=== PATIENT | female | born 1950 | race Caucasian/White ===

== ENCOUNTER → 2018-01-06 10:07 | Outpatient (CLI) | payer OTHER, SELFPAY ==
--- NOTE | 2018-01-06 10:12 | RAD_ITS ---
STUDY: X-RAY CHEST REASON FOR EXAM: Female, 67 years old. 2 month history of cough. TECHNIQUE: PA and lateral views of the chest. COMPARISON: None. FINDINGS: The lungs are clear and expanded. Scattered calcified granulomas. There is no demonstrated pleural abnormality. Normal size heart. Normal mediastinum and benton. Normal visualized pulmonary arteries. There is atherosclerotic tortuosity of the aortic arch and descending thoracic aorta. There are diffuse degenerative changes of the visualized thoracic spine. Normal visualized ribs, clavicles, and shoulders. There is no demonstrated abnormality of the visualized soft tissue structures of the upper abdomen. RAD/Chest PA and Lateral IMPRESSION: No acute abnormality is seen. Electronically Signed: Valentin Lowe MD at 14:05 EST Tel [phone], Service support ,
== END ==
PROVIDERS: Family Provider Internal Medicine; PCP Internal Medicine; Visit Provider Internal Medicine
DX: R05 Cough (principal)
CPT/HCPCS: 71046

== ENCOUNTER → 2018-04-04 09:14 | Outpatient (CLI) | payer OTHER, SELFPAY ==
--- NOTE | 2018-04-04 09:18 | MRI_ITS ---
STUDY: MRI ABDOMEN WITH AND WITHOUT CONTRAST REASON FOR EXAM: Female, 68 years old. Follow-up of pancreatic lesion. TECHNIQUE: Standardized fat and water weighted pulse sequences were obtained in all 3 orthogonal planes post contrast administration. 10 ml of Gadavist contrast material was administered intravenously for the contrast portion of the examination. COMPARISON: None. FINDINGS: The visualized lung bases are unremarkable. The visualized portions of the heart are within normal limits. The liver has heterogeneous signal. There is focal suppression of signal on the Ly in and out sequences within the right and left lobe of liver with relative sparing of the posterior segment of the right lobe liver. The areas of the liver that suppress in signal are likely related to focal fatty infiltration. The posterior segment of the right lobe of the liver that does NOT suppress on the Ly in and out sequences has normal signal in this location on the other sequences and this is presumably related to cirrhotic changes. There is non-visualization of the gallbladder, which may be secondary to either contraction or a prior cholecystectomy. Normal spleen. There is diffuse atrophy of the pancreas. There is a well-circumscribed lesion within the body of the pancreas measuring approximately 1.3 cm in size. This is bright on the T2-weighted images and has decreased T1 signal. This lesion does not appear to enhance. Normal bilateral adrenal glands. Normal right kidney. Normal left kidney. Normal visualized stomach. There is no evidence for dilated bowel, ascites or pneumoperitoneum. Normal colon. The appendix is visualized and appears normal. Abdominal aorta is tortuous. Normal inferior vena cava. Normal retroperitoneum. Normal abdominal wall. Normal osseous structures. MRI/MRI Abd WITH and W/O Contrast IMPRESSION: 1. Unchanged appearance to pancreatic lesion since previous MRI. 2. Geographic hepatic steatosis and possible sequela of cirrhosis. Electronically Signed: Lore Torres MD at 9:15 EDT , Service support ,
[2018-04-04 09:51] LABS: CREATININE FINGERSTICK 0.9 mg/dL (0.55-1.02); EGFR FINGERSTICK > 60.0000 mL/min (>60)
== END ==
PROVIDERS: Family Provider Internal Medicine; PCP Internal Medicine; Visit Provider Internal Medicine
DX: K86.9 Disease of pancreas, unspecified (principal); K76.0 Fatty (change of) liver, not elsewhere classified
CPT/HCPCS: 74183; A9585

== ENCOUNTER → 2018-08-29 07:04 | Outpatient (CLI) | payer OTHER, SELFPAY ==
--- NOTE | 2018-08-29 07:09 | BI_ITS ---
MAMMOGRAPHY - BILATERAL SCREENING REASON FOR EXAM: Female, 68 years old. Routine annual screening examination. PERTINENT HISTORY: Sister with breast cancer. Grandmother with breast cancer. TECHNIQUE: Digital bilateral breast bonita (3D mammographic acquisition) in the CC and MLO projections. 2-D mediolateral oblique (MLO) and craniocaudad (CC) views of both breasts were obtained. CAD: Full Field Digital Mammography with Computer Added Detection was performed. COMPARISON: Comparison is made with prior outside examination dated August 03, 2017. FINDINGS: Breast Composition: The breasts are heterogeneously dense, which may obscure small masses. There are no dominant masses or suspicious calcifications. No other significant abnormalities are identified. There has been no significant change since the prior study. BI/SCREENING MAMM (CAD), BILAT IMPRESSION: Stable bilateral screening mammogram. Yearly follow-up mammogram recommended. (A) ASSESSMENT CATEGORY: BIRADS Category 1: Negative. A letter regarding these results will be sent to the patient by the facility within 30 days. Approximately 10% of breast cancers are not detected by mammography. A normal mammogram should not delay biopsy of a clinically suspicious abnormality. [id number] Electronically Signed: Valentin Lowe MD at 9:36 EDT Tel [phone], Service support ,
== END ==
PROVIDERS: Family Provider Internal Medicine; PCP Internal Medicine; Referring Provider Internal Medicine; Visit Provider Internal Medicine
DX: Z12.31 Encounter for screening mammogram for malignant neoplasm of breast (principal)
CPT/HCPCS: 77063; 77067

== ENCOUNTER → 2018-10-03 07:09 | Outpatient (CLI) | payer OTHER, SELFPAY ==
[2018-10-03 09:12] LABS: AST(SGOT) 25 U/L (15-37); Alanine Aminotransfer ALT/SGPT 41 U/L (13-56); Albumin, Serum 3.7 g/dL (3.2-5.0); Alkaline Phosphatase 70 U/L (45-117); Anion Gap 8 (5-15); BUN 15 mg/dL (7-18); BUN/Creat Ratio 19.1 RATIO (10-20); Calcium,Total 8.6 mg/dL (8.5-10.1); Chloride 109 mmol/L (98-107); Creatinine, Serum 0.79 mg/dL (0.55-1.02); EST Glomerular Filtration Rate 78 mL/min (>60); Est Glom Filt Rate - Afr Amer 94 mL/min (>60); Globulin 3.6 g/dL (2.2-4.2); Glucose 94 mg/dL (74-106); Potassium 4.1 mmol/L (3.5-5.1); Protein, Total 7.3 g/dL (6.4-8.2); Sodium Level 145 mmol/L (136-145); T4 Free Direct 1.05 ng/dL (0.76-1.46); Thyroid Stim Hormone (TSH) 1.97 uIU/mL (0.358-3.74)
== END ==
PROVIDERS: Family Provider Internal Medicine; PCP Internal Medicine; Referring Provider Internal Medicine; Visit Provider Internal Medicine
DX: E55.9 Vitamin D deficiency, unspecified (principal); R60.0 Localized edema
CPT/HCPCS: 36415; 80053; 82306; 84439; 84443

== ENCOUNTER → 2019-01-04 08:02 | Outpatient (CLI) | payer SELFPAY ==
--- NOTE | 2019-01-04 08:09 | RAD_ITS ---
HISTORY: Cough EXAM:XR Chest 2 Views: COMPARISON: 01/06/2018 FINDINGS: No significant change. Shallow inspiration. Normal heart size. No vascular congestion, pleural effusion, or acute pulmonary infiltration. Senescent changes of the dorsal spine. RAD/Chest PA and Lateral IMPRESSION: No acute cardiopulmonary disease. No significant interval change. at 0230 Reported and signed by: Brandon Maier MD Electronically Signed: Brandon Maier, at 2:28 EST Tel , Service support ,
== END ==
PROVIDERS: Family Provider Internal Medicine; PCP Internal Medicine; Referring Provider Internal Medicine; Visit Provider Internal Medicine
DX: R05 Cough (principal)
CPT/HCPCS: 71046

== ENCOUNTER → 2019-01-25 13:38 | Outpatient (CLI) | payer SELFPAY ==
--- NOTE | 2019-01-25 13:42 | CT_ITS ---
STUDY: CT CHEST WITHOUT CONTRAST REASON FOR EXAM: Female, 68 years old. Calcium scoring examination. Radiological over read. RADIATION DOSAGE (If Supplied By Facility): CTDIvol = ( 12.19 ) mGy, DLP = ( 195.04 ) mGycm TECHNIQUE: Transaxial imaging was performed without the administration of intravenous contrast material. Individualized dose optimization techniques were used for this CT. COMPARISON: Comparison is made with prior CT scan of the chest dated February 05, 2013. FINDINGS: The lungs are normal. There is no demonstrated pleural abnormality. There are calcifications of the coronary arteries. There are multiple small lymph nodes within the mediastinum, which are normal in size and morphology most compatible with reactive lymph hyperplasia. Normal hilar regions. Normal unenhanced pulmonary arteries. Normal aorta arch and descending thoracic aorta. Normal osseous structures. Diffuse fatty infiltration of the liver. CT/Limited Chest CT w/CCTA IMPRESSION: Diffuse fatty filtration of the liver. Electronically Signed: Valentin Lowe, at 15:04 EST , Service support ,
[2019-01-25 14:28] VITALS: BP 160/78; PULSE 72; RESP 16; O2SAT 95; BMI 39.1
--- NOTE | 2019-01-25 19:58 | CA.SCORE ---
Calcium Scoring Date of Study:: 01/25/19 Coronary Calcium Scoring: Coronary calcium score: 40.5 Conclusion: Coronary calcium score: 40.5 Results: The patient underwent a high resolution CT imaging of the chest. Particular attention was paid to the coronary arteries. The coronary arteries were analyzed for the presence of extensive coronary artery calcification using coronary calcium quantification software. The patient was reported as tolerated the procedure well without adverse events. The coronary calcium score was reported at 40.5. The left main coronary artery was reported as having a coronary calcium score of 40.5. The LAD, LCx, and RCA vessels were reported as having a coronary calcium score of 0. According to pre published reference tables a coronary calcium score of 40.5 would be indicative a mild plaque burden and the likelihood of minimal to mild coronary artery stenosis. Impression: Coronary calcium score: 40.5 This note was generated using a voice recognition system and there may be incorrect words, spelling or punctuation that were not noted when reviewing the office note prior to saving.
== END ==
PROVIDERS: Family Provider Internal Medicine; PCP Internal Medicine; Referring Provider Internal Medicine; Visit Provider Internal Medicine
DX: I10 Essential (primary) hypertension (principal)
CPT/HCPCS: 75571; 76380

== ENCOUNTER → 2019-01-31 08:13 | Outpatient (CLI) | payer OTHER, SELFPAY ==
[2019-01-25 14:28] VITALS: BMI 39.1
--- NOTE | 2019-01-31 08:18 | BD_ITS ---
STUDY: DUAL ENERGY X-RAY ABSORPTIOMETRY / DXA REASON FOR EXAM: Female, 68 years old. The patient is postmenopausal. TECHNIQUE: Bone Mineral Density (BMD) measurements of lumbar spine and bilateral hips were obtained. COMPARISON: Comparison is made with prior examination dated December 28, 2016. FINDINGS: Lumbar Spine (L1-L4): g/cm2 (1.239) / T-score (0.6) / Z-score (2.2) Findings are suggestive of normal bone density with a low fracture risk. Left Femur Total: g/cm2 (1.240) / T-score (1.8) / Z-score (3.1) Left Femoral Neck: g/cm2 (1.085) / T-score (0.3) / Z-score (1.9) Right Femur Total: g/cm2 (1.17) / T-score (1.3) / Z-score (2.6) Right Femoral Neck: g/cm2 (1.026) / T-score (-0.1) / Z-score (1.5) The T-Scores on the most recent prior examination were: Lumbar Spine (L1-L4): There has been worsening of bone density since the previous examination. Left Femur Total: which represents an improvement of 0.5%. Right Femur Total: which represents no significant change. . BD/Dexa Bone Density Study IMPRESSION: The patient is considered normal as outlined below according to World Cristofer Organization (WHO) criteria with a low fracture risk. There has been worsening of bone density since the previous examination. Reference Information: The T-score is the number of standard deviations above or below the standard which is normal for young adults at their peak bone mineral density. The World Health Organization (WHO) interprets the T-scores as follows: Above -1 Normal bone density Between -1 and -2.5 Osteopenia Equal to / or below -2.5 Osteoporosis As a practical clinical guideline, osteopenia may be graded as follows: Mild -1 through -1.5 Moderate -1.6 through -2.0 Severe -2.1 through -2.4 The Z-score is the number of standard deviations above or below age-matched controls. A Z-score of less than -1.5 would be considered abnormal. References: 1. NIH Osteoporosis and Related Bone Diseases http://www.osteo.org 2. International Society for Clinical Densitometry http://www.iscd.org 3. National Osteoporosis Foundation http://www.nof.org Electronically Signed: Valentin Lowe, at 12:46 EST , Service support ,
== END ==
PROVIDERS: Family Provider Internal Medicine; PCP Internal Medicine; Referring Provider Internal Medicine; Visit Provider Internal Medicine
DX: Z78.0 Asymptomatic menopausal state (principal)
CPT/HCPCS: 77080

== ENCOUNTER → 2019-06-12 | Outpatient (CLI) | payer OTHER, SELFPAY ==
[2019-01-25 14:28] VITALS: BMI 39.1
[2019-06-12 08:37] LABS: AST(SGOT) 24 U/L (15-37); Alanine Aminotransfer ALT/SGPT 39 U/L (13-56); Albumin, Serum 3.8 g/dL (3.2-5.0); Alkaline Phosphatase 85 U/L (45-117); Bilirubin, Direct 0.13 mg/dL (0.00-0.30); Cholesterol 106 mg/dL (200); Globulin 3.2 g/dL (2.2-4.2); High Density Lipoprotein 42 mg/dL; Triglycerides 103 mg/dL; Very Low Density Lipoprotein 21 mg/dL (5-40)
== END | disposition home or self-care (01) ==
LOC: LAB 07:39
PROVIDERS: Family Provider Internal Medicine; PCP Internal Medicine; Referring Provider Internal Medicine; Visit Provider Internal Medicine
DX: E78.5 Hyperlipidemia, unspecified (principal)
CPT/HCPCS: 36415; 80061; 80076

== ENCOUNTER → 2019-08-07 06:55 | Outpatient (CLI) | payer OTHER, SELFPAY ==
[2019-01-25 14:28] VITALS: BMI 39.1
--- NOTE | 2019-08-07 06:59 | BI_ITS ---
MAMMOGRAPHY - BILATERAL SCREENING REASON FOR EXAM: Female, 69 years old. Routine annual screening examination. PERTINENT HISTORY: Sister with breast cancer. Grandmother with breast cancer. TECHNIQUE: Digital bilateral breast kenn (3D mammographic acquisition) in the CC and MLO projections. 2-D mediolateral oblique (MLO) and craniocaudad (CC) views of both breasts were obtained. CAD: Full Field Digital Mammography with Computer Added Detection was performed. COMPARISON: Comparison is made with prior study dated August 29, 2018. FINDINGS: Breast Composition: The breasts are heterogeneously dense, which may obscure small masses. There are no dominant masses or suspicious calcifications. No other significant abnormalities are identified. There has been no significant change since the prior study. BI/SCREEN MAMM (CAD) W/KENN BILAT IMPRESSION: Stable bilateral screening mammogram. Yearly follow-up mammogram recommended. (A) ASSESSMENT CATEGORY: BIRADS Category 1: Negative. A letter regarding these results will be sent to the patient by the facility within 30 days. Approximately 10% of breast cancers are not detected by mammography. A normal mammogram should not delay biopsy of a clinically suspicious abnormality. [id number] Electronically Signed: Valentin Lowe, at 11:27 EDT , Service support ,
--- NOTE | 2019-08-07 06:59 | US_ITS ---
STUDY: ULTRASOUND - URINARY BLADDER REASON FOR EXAM: Female, 69 years old. Bladder pain. Urinary hesitancy. TECHNIQUE: Ultrasound evaluation of the urinary bladder was performed with real-time and static pearce-scale imaging. COMPARISON: None. FINDINGS: There is no right UVJ calculus. There is a visualized right ureteral jet. There is no left UVJ calculus. There is a visualized left ureteral jet. The distended volume of the urinary bladder is 159 ml. The empty volume of the urinary bladder is 33.11 ml. The bladder wall is within normal limits. The bladder wall measures 4.5 mm. There is no demonstrated bladder wall mass lesion. There are no demonstrated bladder calculi. US/Post Void Residual Bladder IMPRESSION: Minimal postvoid residual. Electronically Signed: Valentin Lowe, at 11:25 EDT , Service support ,
== END ==
PROVIDERS: Family Provider Internal Medicine; PCP Internal Medicine; Referring Provider Internal Medicine; Visit Provider Internal Medicine
DX: Z12.31 Encounter for screening mammogram for malignant neoplasm of breast (principal); Z80.3 Family history of malignant neoplasm of breast; R39.11 Hesitancy of micturition
CPT/HCPCS: 51798; 77063; 77067

== ENCOUNTER → 2019-08-16 12:11 | Outpatient (CLI) | payer OTHER, SELFPAY ==
[2019-01-25 14:28] VITALS: BMI 39.1
--- NOTE | 2019-08-16 12:22 | MRI_ITS ---
HISTORY: Pelvic pain. Cramping. Symptoms ongoing for 2 months. Cholecystectomy. Technique: Coronal axial images were obtained. Sagittal T2 series was obtained. Eighth series. 277 images. Although previous imaging of the abdomen has been performed. This is the first imaging of the pelvis. Findings: Diverticulosis is severe within the sigmoid colon. Diverticulosis is without evidence of diverticulitis. The urinary bladder is mostly decompressed. The uterus is been resected. Bony alignment is normal. Both femoral heads are well-seated respective acetabulum. Small right hip effusion. Mild degenerative disc disease. No ascites. No adenopathy. MRI/Pelvis W/WO Contrast IMPRESSION: Diverticulosis without evidence of acute diverticulitis. at 0330 Reported and signed by: Maximino Stoddard MD Electronically Signed: Maximino Stoddard MD at 3:29 EDT Tel , Service support ,
--- NOTE | 2019-08-16 12:24 | MRI_ITS ---
HISTORY: PANCREATIC LESION, follow up EXAMINATION: MR Abdomen WO/W Contrast TECHNIQUE: Multiplanar and multisequence MR images of the abdomen were obtained. 15 series. 895 images IV Contrast dosage and agent: 20 Dotarem COMPARISON: Post recent comparison is made 2017. Study before that is March 03, 2017. These are previous MRIs of the abdomen. The oldest MRI available for comparison is October 08, 2014 FINDINGS: LOWER CHEST: Minimally imaged. Uneven all of the liver and spleen were scanned LIVER: Incompletely imaged. The heterogeneity of the liver is well demonstrated on the out of phase T1-weighted imaging due to the differences in fatty infiltration of the hepatic parenchyma without clearly defined mass. GALLBLADDER AND BILIARY TREE: The gallbladder has been resected No intra- or extrahepatic biliary ductal dilation. PANCREAS: With in the tail of the pancreas, just lateral to the body of the pancreas there remains a lesion. On today's study this lesion remains hypointense on T1 in and out of phase imaging. It remains hypointense on T1 post gadolinium imaging. And it is hypointense on fat saturated and nonfat saturated T1-weighted imaging. It is hyperintense on all T2 weighted series. It is more intense than fat on the T2-weighted series. Has well-defined margins. Measuring it on the T2-weighted images on today's series, I measure it at by 1.4 cm. This compares to 1.5 x 1.4 cm on the April 04, 2018 study. This compares to 1.2 x 1.1 cm on the October 08, 2014 study. SPLEEN: Normal size without focal cystic or solid mass. ADRENAL GLANDS: No nodules. KIDNEYS AND URETERS: Normal renal size and position. No hydronephrosis. PERITONEUM: No ascites or free air. No other fluid collection. LYMPH NODES: No enlarged mesenteric or retroperitoneal lymph nodes. VESSELS: Aorta is non-dilated. MRI/MRI Abd WITH and W/O Contrast IMPRESSION: Stable lesion within the pancreatic tail. Minimal growth since September 2014. This is likely a benign cystic lesion of the pancreas. Hepatic steatosis persists at 0345 Reported and signed by: Maximino Stoddard MD Electronically Signed: Maximino Stoddadr MD at 3:44 EDT Tel , Service support ,
[2019-08-16 12:46] LABS: CREATININE FINGERSTICK 0.7 mg/dL (0.55-1.02); EGFR FINGERSTICK > 60.0000 mL/min (>60)
== END ==
PROVIDERS: Family Provider Internal Medicine; PCP Internal Medicine; Referring Provider Internal Medicine; Visit Provider Internal Medicine
DX: K86.9 Disease of pancreas, unspecified (principal); R10.2 Pelvic and perineal pain
CPT/HCPCS: 72197; 74183; A9575; A4216

== ENCOUNTER → 2020-09-17 07:23 | Outpatient (CLI) | payer OTHER, SELFPAY ==
[2019-01-25 14:28] VITALS: BMI 39.1
--- NOTE | 2020-09-17 07:25 | BI_ITS ---
MAMMOGRAPHY - BILATERAL SCREENING REASON FOR EXAM: Female, 70 years old. Routine annual screening examination. PERTINENT HISTORY: Sister with breast cancer. Grandmother with breast cancer. TECHNIQUE: Digital bilateral breast kenn (3D mammographic acquisition) in the CC and MLO projections. 2-D mediolateral oblique (MLO) and craniocaudad (CC) views of both breasts were obtained. CAD: Full Field Digital Mammography with Computer Added Detection was performed. COMPARISON: Comparison is made with prior examination dated 08/07/2019 and 08/29/2018. FINDINGS: Breast Composition: The breasts are heterogeneously dense, which may obscure small masses. There are no dominant masses or suspicious calcifications. No other significant abnormalities are identified. There has been no significant change since the prior study. BI/SCREEN MAMM (CAD) W/KENN BILAT IMPRESSION: Stable bilateral screening mammogram. Yearly follow-up mammogram recommended. (A) ASSESSMENT CATEGORY: BIRADS Category 1: Negative. A letter regarding these results will be sent to the patient by the facility within 30 days. Approximately 10% of breast cancers are not detected by mammography. A normal mammogram should not delay biopsy of a clinically suspicious abnormality. [id number] Electronically Signed: Valentin Lowe, at 8:34 EDT , Service support ,
== END ==
PROVIDERS: PCP Internal Medicine; Referring Provider Internal Medicine; Visit Provider Internal Medicine
DX: Z12.31 Encounter for screening mammogram for malignant neoplasm of breast (principal)
CPT/HCPCS: 77063; 77067

== ENCOUNTER → 2021-02-03 08:05 | Outpatient (CLI) | payer OTHER, SELFPAY ==
[2019-01-25 14:28] VITALS: BMI 39.1
--- NOTE | 2021-02-03 08:14 | BD_ITS ---
STUDY: DUAL ENERGY X-RAY ABSORPTIOMETRY / DXA REASON FOR EXAM: Female, 70 years old. [id number] TECHNIQUE: Bone Mineral Density (BMD) measurements of lumbar spine and bilateral hips were obtained. COMPARISON: Comparison is made with prior study dated 01/31/2019. FINDINGS: Lumbar Spine (L1-L4): g/cm2 (1.218) / T-score (0.4) / Z-score (2.1) Findings are suggestive of normal bone density with a low fracture risk. Left Femur Total: g/cm2 (1.271) / T-score (2.1) / Z-score (3.5) Left Femoral Neck: g/cm2 (1.160) / T-score (0.9) / Z-score (2.5) Right Femur Total: g/cm2 (1.181) / T-score (1.4) / Z-score (2.8) Right Femoral Neck: g/cm2 (1.046) / T-score (0.1) / Z-score (1.7) The T-Scores on the most recent prior examination were: Lumbar Spine (L1-L4): There has been worsening of bone density since the previous examination. Left Femur Total: which represents an improvement of 2.5%. Right Femur Total: which represents an improvement of 0.3%. BD/Dexa Bone Density Study IMPRESSION: The patient is considered normal as outlined below according to World Cristofer Organization (WHO) criteria with a low fracture risk. There has been improvement of bone density since the previous examination. Reference Information: The T-score is the number of standard deviations above or below the standard which is normal for young adults at their peak bone mineral density. The World Health Organization (WHO) interprets the T-scores as follows: Above -1 Normal bone density Between -1 and -2.5 Osteopenia Equal to / or below -2.5 Osteoporosis As a practical clinical guideline, osteopenia may be graded as follows: Mild -1 through -1.5 Moderate -1.6 through -2.0 Severe -2.1 through -2.4 The Z-score is the number of standard deviations above or below age-matched controls. A Z-score of less than -1.5 would be considered abnormal. References: 1. NIH Osteoporosis and Related Bone Diseases www osteo.org 2. International Society for Clinical Densitometry www iscd.org 3. National Osteoporosis Foundation www nof.org Electronically Signed: Valentin Lowe MD at 13:52 EDT , Service support ,
== END ==
PROVIDERS: PCP Internal Medicine; Referring Provider Internal Medicine; Visit Provider Internal Medicine
DX: Z78.0 Asymptomatic menopausal state (principal)
CPT/HCPCS: 77080

== ENCOUNTER → 2021-03-16 06:27 | Outpatient (CLI) | payer OTHER, SELFPAY ==
[2019-01-25 14:28] VITALS: BMI 39.1
--- NOTE | 2021-03-16 06:39 | MRI_ITS ---
MR Abdomen WO/W Contrast 03/16/2021 7:08 AM COMPARISON: 08/16/2019 CLINICAL HISTORY: LESION OF PANCREAS TECHNIQUE: Multiplanar T1 and T2 weighted and dynamic post-gadolinium images were obtained through the abdomen. FINDINGS: Liver: The liver heterogeneously drops signal on out of phase imaging compared to in phase imaging compatible with hepatic steatosis. No focal mass. The contour is smooth. Gallbladder: Surgically absent. Spleen: Unremarkable Pancreas: Redemonstration of a 1.3 x 1.2 cm nonenhancing oval T1 hypointense/T2 hyperintense lesion within the tail of the pancreas. This lesion does not drop signal on out of phase imaging nor does it loses signal on fat saturation techniques. Adrenal Glands: Unremarkable Kidneys: Unremarkable GI Tract: Duodenal diverticulum. Vasculature: Unremarkable Lymphadenopathy: Absent Ascites: Absent Bones: No suspicious lesions MRI/MRI Abd WITH and W/O Contrast IMPRESSION: Stable 1.3 cm cystic lesion within the tail of the pancreas. Differential diagnosis includes a congenital cyst or cystic neoplasm such as side branch intraductal papillary mucinous neoplasm (IPMN). Recommend continued follow-up MRI in one year to document stability. Hepatic steatosis. Duodenal diverticulum. Electronically Signed: Akash Stewart MD at 16:21 EDT Tel , Service support ,
[2021-03-16 06:55] LABS: CREATININE FINGERSTICK 0.9 mg/dL (0.55-1.02); EGFR FINGERSTICK > 60.0000 mL/min (>60)
== END ==
PROVIDERS: PCP Internal Medicine; Referring Provider Internal Medicine; Visit Provider Internal Medicine
DX: K86.9 Disease of pancreas, unspecified (principal)
CPT/HCPCS: 74183; A9575

== ENCOUNTER → 2021-09-23 07:05 | Outpatient (CLI) | payer OTHER, SELFPAY ==
--- NOTE | 2021-09-23 07:06 | BI_ITS ---
MAMMOGRAPHY - BILATERAL SCREENING REASON FOR EXAM: Female, 71 years old. Routine annual screening examination. PERTINENT HISTORY: Sister with breast cancer. Grandmother with breast cancer. TECHNIQUE: Digital bilateral breast kenn (3D mammographic acquisition) in the CC and MLO projections. 2-D mediolateral oblique (MLO) and craniocaudad (CC) views of both breasts were obtained. CAD: Full Field Digital Mammography with Computer Added Detection was performed. COMPARISON: Comparison is made with prior study dated 09/17/2020 and 08/07/2019. FINDINGS: Breast Composition: The breasts are heterogeneously dense, which may obscure small masses. There are no dominant masses or suspicious calcifications. No other significant abnormalities are identified. There has been no significant change since the prior study. BI/SCRN MAMM (CAD)W/KENN BILAT IMPRESSION: Stable bilateral screening mammogram. Yearly follow-up mammogram recommended. (A) ASSESSMENT CATEGORY: BIRADS Category 1: Negative. A letter regarding these results will be sent to the patient by the facility within 30 days. Approximately 10% of breast cancers are not detected by mammography. A normal mammogram should not delay biopsy of a clinically suspicious abnormality. [id number] Electronically Signed: Valentin Lowe MD at 12:24 EDT , Service support ,
== END ==
PROVIDERS: PCP Internal Medicine; Referring Provider Internal Medicine; Visit Provider Internal Medicine
DX: Z12.31 Encounter for screening mammogram for malignant neoplasm of breast (principal)
CPT/HCPCS: 77063; 77067

== ENCOUNTER 2022-01-15 12:24 | Outpatient (CLI) | payer OTHER, SELFPAY ==
--- NOTE | 2022-01-15 12:27 | CT_ITS ---
STUDY: CT CHEST without CONTRAST REASON FOR EXAM: Female, 71 years old. CAD. Overread examination. RADIATION DOSAGE (If Supplied By Facility): CTDIvol = ( 12.19 ) mGy, DLP = ( 219.42 ) mGycm TECHNIQUE: Transaxial imaging was performed without IV contrast.. Individualized dose optimization techniques were used for this CT. COMPARISON: None. FINDINGS: Mild scarring along the posterior medial aspect of the right lower lobe. There is no demonstrated pleural abnormality. There are calcifications of the coronary arteries. There are multiple small lymph nodes within the mediastinum, which are normal in size and morphology most compatible with reactive lymph hyperplasia. Normal hilar regions. Normal enhanced pulmonary arteries. Normal aorta arch and descending thoracic aorta. There are degenerative changes of the thoracic spine. Diffuse fatty infiltration of the liver. CT/Limited Chest CT w/CCTA IMPRESSION: Coronary artery calcification. Fatty infiltration of the liver. Electronically Signed: Valentin Lowe MD at 13:53 EST ,
[2022-01-15 12:42] VITALS: BP 163/77; PULSE 68; RESP 16; O2SAT 98; BMI 40.3
--- NOTE | 2022-01-24 15:45 | CA.SCORE ---
Calcium Scoring Coronary Calcium Scoring: High-resolution Computed Tomographic imaging of the chest was performed on [01/15/2022], with particular attention paid to the coronary arteries. Images from the examination were analyzed for the presence and extent of coronary artery calcification , using coronary calcium quantification software. The patient tolerated the procedure well and there were no complications. The results of the coronary calcification analysis are provided below. Left main score 0 Left anterior descending artery score 43.7 Left circumflex artery score 0 Right coronary artery score 0 Total Agatston score 43.7. The above is suggestive of a percentile ranking of between 50 and 75%. Conclusion the above is suggestive of likely mild or minimal atherosclerosis. Calcium Scoring Interpretation: 0 No identifiable atherosclerotic plaque. Very low cardiovascular disease risk. <5% chance of presence coronary artery disease A Negative Examination 1-10 Minimal Plaque burden. Significant coronary artery disease very unlikely. 11-100 Mild plaque burden. Likely mild or minimal coronary atherosclerosis. 101-400 Moderate plaque burden Moderate non-obstructive coronary artery disease highly likely. Over 400 Extensive plaque burden. High likelihood of at least one significant coronary stenosis (>50% diameter)
== END 2022-01-15 23:59 | disposition home or self-care (01) ==
LOC: CT 12:25
PROVIDERS: PCP Internal Medicine; Referring Provider Internal Medicine; Visit Provider Internal Medicine
DX: I25.10 Atherosclerotic heart disease of native coronary artery without angina pectoris (principal)
CPT/HCPCS: 75571; 76380

== ENCOUNTER → 2022-09-08 | Outpatient (CLI) | payer OTHER, SELFPAY ==
--- NOTE | 2022-09-08 07:07 | BI_ITS ---
MAMMOGRAPHY - BILATERAL SCREENING REASON FOR EXAM: Female, 72 years old. Routine annual screening examination. PERTINENT HISTORY: Sister with breast cancer. Grandmother with breast cancer. TECHNIQUE: Digital bilateral breast bonita (3D mammographic acquisition) in the CC and MLO projections. 2-D mediolateral oblique (MLO) and craniocaudad (CC) views of both breasts were obtained. CAD: Full Field Digital Mammography with Computer Added Detection was performed. COMPARISON: Comparison is made with prior examination dated 09/23/2021 and 09/17/2020. FINDINGS: Breast Composition: The breasts are heterogeneously dense, which may obscure small masses. There are no dominant masses or suspicious calcifications. No other significant abnormalities are identified. There has been no significant change since the prior study. BI/SCREENING MAMM (CAD), BILAT IMPRESSION: Stable bilateral screening mammogram. Yearly follow-up mammogram recommended. (A) ASSESSMENT CATEGORY: BIRADS Category 1: Negative. A letter regarding these results will be sent to the patient by the facility within 30 days. Approximately 10% of breast cancers are not detected by mammography. A normal mammogram should not delay biopsy of a clinically suspicious abnormality. [id number] Electronically Signed: Valentin Lowe MD at 8:53 EDT ,
== END | disposition home or self-care (01) ==
LOC: OPBI 07:06
PROVIDERS: PCP Internal Medicine; Visit Provider Internal Medicine
DX: Z12.31 Encounter for screening mammogram for malignant neoplasm of breast (principal); Z80.3 Family history of malignant neoplasm of breast
CPT/HCPCS: 77067

== ENCOUNTER → 2023-02-04 | Outpatient (CLI) | payer OTHER, SELFPAY ==
--- NOTE | 2023-02-04 07:29 | US_ITS ---
STUDY: ABDOMINAL ULTRASOUND - RIGHT UPPER QUADRANT REASON FOR VISIT: Female, 72 years old . History of a cystic lesion in the tail of the pancreas. TECHNIQUE: Ultrasound evaluation of the right upper quadrant was performed with real-time and static pearce-scale imaging. TECHNICAL QUALITY: Adequate. COMPARISON: Comparison is made with prior MRI of the abdomen dated March 16, 2021. FINDINGS: Liver: The liver is enlarged and measures 19.7 cm. There is a heterogeneous echogenicity of the liver. The bile ducts are within normal limits. There is hepatic color flow. The direction of portal flow is hepatopetal. There is no demonstrated mass lesion. Gallbladder: The patient is status post cholecystectomy. Common Bile Duct (C.B.D.): The common bile duct measures 10 mm. Pancreas: Normal size of the head, body of the pancreas. The tail portion of the pancreas is obscured due to overlying bowel gas. There is normal echogenicity of the pancreas. There is no demonstrated pancreatic mass or cyst. Right Kidney: Normal size of the right kidney. The right kidney measures 11.3 cm x 5.7 cm x 5.0 cm. Normal renal cortex. The right cortex measures 1.6 cm. There is no demonstrated renal mass or cyst. There is no right hydronephrosis. US/Abdomen Limited IMPRESSION: Hepatomegaly and heterogeneous appearance of the liver. Electronically Signed: Valentin Lowe MD at 13:51 EST ,
--- NOTE | 2023-02-04 07:29 | US_ITS ---
STUDY: ABDOMINAL ULTRASOUND - ELASTOGRAPHY REASON FOR VISIT: Female, 72 years old. Hepatic steatosis. TECHNIQUE: Liver stiffness measurements were obtained on a [employer] RS 85 ultrasound machine using a CA 1-7 probe following the SRU guidelines. 3 measurements were obtained using a 2-D-SWE method. TheIQR/M was 19% suggesting a quality data set. TECHNICAL QUALITY: Adequate. COMPARISON: Comparison is made with prior ultrasound of the right upper quadrant done earlier today. FINDINGS: Liver: Hepatomegaly and heterogeneous appearance of the liver. Median liver stiffness measured 11.8 kPa. US/Elastography Parenchyma/Organ IMPRESSION: Liver stiffness measures 11.8 kPa compatible with F2-F3 (Mild to moderate liver fibrosis) Metavir score. Electronically Signed: Valentin Lowe MD at 13:53 EST ,
== END | disposition home or self-care (01) ==
PROVIDERS: PCP Internal Medicine; Referring Provider Internal Medicine; Visit Provider Internal Medicine
DX: K76.0 Fatty (change of) liver, not elsewhere classified (principal); I25.10 Atherosclerotic heart disease of native coronary artery without angina pectoris
CPT/HCPCS: 76705; 76981

== ENCOUNTER → 2023-02-10 | Outpatient (CLI) | payer OTHER, SELFPAY ==
--- NOTE | 2023-02-12 13:37 | STRESSREP_ITS ---
Stress Test Report Date: 02/10/2023 Procedure: Exercise tolerance test/imaging study Indications: CAD Consent: Per the patient Procedure: The patient exercised on a Horacio protocol for 7 minutes achieving a peak heart rate of 150 bpm (100% predicted maximal heart rate) with a peak blood pressure 168/70 mmHg and a peak MET capacity of 10.1 METs. The baseline ECG demonstrated normal sinus rhythm. The peak exercise ECG demonstrated no significant ischemic changes. EKG during recovery revealed no significant ischemic changes [There were no cardiac dysrhythmias pretest, during exercise, or recovery]. The functional capacity was considered normal for age. There was [no complaint of chest discomfort during exercise or recovery]. The examination was discontinued secondary to achieving target heart rate. Impression: 1. Technically adequate (percent predicted maximal heart rate greater than 85%) exercise tolerance test 2. Stress test is negative for exercise-induced EKG changes of ischemia 3. The test test is [negative] for exercise-induced chest pain 4. Functional capacity is[normal for age] 5. Nuclear images pending Myocardial perfusion imaging study: Technique: The patient was injected with 15 mCi of technetium 99m Cardiolite and subsequently rest SPECT Cardiolite nuclear imaging was obtained in the horizontal long, vertical long, and short axis views. The patient exercised on a Horacio protocol. Please see above for details. The patient was injected with 45 mCi of technetium 99m Cardiolite and subsequently stress SPECT Cardiolite nuclear imaging was obtained in the horizontal long, vertical long, and short axis views. A gated Cardiolite study at peak stress was obtained. Interpretation: Rest and stress SPECT Cardiolite nuclear imaging status post realignment, normalization, and attenuation correction, demonstrates overall normal myocardial radioisotope uptake. The gated Cardiolite study demonstrates no significant regional wall motion abnormalities. The reported LVEF is greater than 70%. Impression: 1. There is no evidence of significant ischemia or infarction. 2. The gated Cardiolite study reports an LVEF of greater than 70%. This note was generated with [employer] software. It may contain incorrect words, spelling, and punctuation that were not noted in checking the note before signing.
== END | disposition home or self-care (01) ==
LOC: NM 07:12
PROVIDERS: PCP Internal Medicine; Visit Provider Internal Medicine
DX: K76.0 Fatty (change of) liver, not elsewhere classified (principal); I25.10 Atherosclerotic heart disease of native coronary artery without angina pectoris
CPT/HCPCS: 78452; 93017; A9500

== ENCOUNTER → 2023-06-03 | Outpatient (CLI) | payer MEDICARE, OTHER, SELFPAY ==
[2023-06-03 10:07] LABS: Absolute Lymphocyte Count 1.64 X10^3/uL (0.83-4.51); Absolute Neutrophil Count 3.2 X10^3/uL (2.0-7.7); Basophil# 0.04 X10^3/uL; Basophil% 0.7 % (0-1); Eosinophil# 0.14 X10^3/uL; Eosinophils% 2.5 % (0-5); Hematocrit 43.2 % (37-47); Lymphocyte # 1.64 X10^3/ul (0.83-4.51); Lymphocyte % 29.8 % (19-41); Mean Corp Hgb Conc 32.4 g/dL (32-36); Mean Corpuscular Hgb 29.8 pg (27.0-32.0); Mean Corpuscular Volume 91.9 fL (81-99); Mean Platelet Vol. 10.6 fl (6.2-12.0); Monocyte# 0.39 X10^3/uL; Monocyte% 7.1 % (0-10); NRBC Flagged by Analyzer 0 % (0-5); Neutrophil # 3.24 X10^3/uL (2.7-7.7); Neutrophil % 58.8 % (47-70); Platelet Count 197 K/mm3 (150-450); RBC Distribution Width CV 12.4 % (11.6-14.6); RBC Distribution Width SD 42.1 fl (35.1-43.9); White Blood Count 5.5 K/mm3 (4.4-11.0)
[2023-06-03 10:11] LABS: Prothrombin Time (Protime)PT. 13.3 SECONDS (11.7-14.9)
[2023-06-03 10:22] LABS: Hemoglobin A1c 5.9 % (3.8-5.6)
[2023-06-03 10:40] LABS: ALB/GLOB Ratio 1.1 RATIO (0.9-2.4); AST(SGOT) 27 U/L (15-37); Alanine Aminotransfer ALT/SGPT 29 U/L (13-56); Albumin, Serum 3.9 g/dL (3.2-5.0); Alkaline Phosphatase 97 U/L (45-117); Anion Gap 4 (5-15); BUN 17 mg/dL (7-18); CRP < 2.90 mg/L (0.0-3.0); Calcium,Total 8.9 mg/dL (8.5-10.1); Chloride 108 mmol/L (98-107); Creatinine, Serum 0.85 mg/dL (0.55-1.02); EST Glomerular Filtration Rate 70 mL/min (>60); Est Glom Filt Rate - Afr Amer 85 mL/min (>60); Ferritin 134 ng/mL (8-252); Globulin 3.6 g/dL (2.2-4.2); Glucose 106 mg/dL (74-106); Iron 141 ug/dL (50-170); Iron Binding Capacity,Total 335 ug/dL (250-450); LDH 238 U/L (84-246); PERCENT IRON SATURATION 42.1 % (15.0-55.0); Potassium 4.2 mmol/L (3.5-5.1); Protein, Total 7.5 g/dL (6.4-8.2); Sodium Level 139 mmol/L (136-145)
[2023-06-03 11:02] LABS: HIV - WCH Non-Reactive (Nonreactive)
[2023-06-03 11:42] LABS: Erythrocyte Sedimentation Rate 18 mm/hr (0-30)
[2023-06-06 18:07] LABS: Anti-Centromere B Ab <0.2 AI (0.0-0.9); Anti-Chromatin <0.2 AI (0.0-0.9); Anti-Jo <0.2 AI (0.0-0.9); Anti-Mitochondrial AB <20.0 Units (0.0-20.0); Anti-Scleroderma-70 AB <0.2 AI (0.0-0.9); Anti-dsDNA Ab <1 IU/mL (0-9); RNP Ab 0.2 AI (0.0-0.9); SJOGREN'S Anti-SS-A test < 0.2 AI (0.0-0.9); SJOGREN'S Anti-SS-B test < 0.2 AI (0.0-0.9); Smith Ab <0.2 AI (0.0-0.9)
[2023-06-07 11:09] LABS: AFP, Tumor Marker 3.1 ng/mL (0.0-9.2); Angiotensin Convert Enzyme 15 U/L (14-82); Anti-Smooth Muscle ABS 9 Units (0-19); Carbohydrate AG 19-9 13 U/mL (0-35); Carcinoembryonic Antigen 0.8 ng/mL (0.0-4.7); Ceruloplasmin 24.6 mg/dL (19.0-39.0); Copper, Serum or Plasma 108 ug/dL (80-158); Cytoplasmic Ab (C-ANCA) <1:20 titer (Neg:<1:20); HEPATITIS B SURFACE AG Negative (Negative); Haptoglobin 158 mg/dL (42-346); Hep C Antibodies Non Reactive (Non Reactive); Hepatitis A IgM Antibody Negative (Negative); Hepatitis B Core AB IgM Negative (Negative); Perinuclear Ab (P-ANCA) <1:20 titer (Neg:<1:20); Transferrin 239 mg/dL (192-364)
== END | disposition home or self-care (01) ==
LOC: LAB 08:44
PROVIDERS: PCP Internal Medicine; Referring Provider Internal Medicine Gastroenterology; Visit Provider Internal Medicine Gastroenterology
DX: K76.9 Liver disease, unspecified (principal); K86.9 Disease of pancreas, unspecified
CPT/HCPCS: 36415; 80053; 80074; 82105; 82140; 82164; 82378; 82390; 82525; 82728; 83010; 83036; 83516; 83540; 83550; 83615; 84466; 85025; 85610; 85652; 86140; 86225; 86235; 86256; 86301; 86703

== ENCOUNTER → 2023-06-13 | Outpatient (CLI) | payer MEDICARE, OTHER, SELFPAY ==
--- NOTE | 2023-06-13 15:42 | MRI_ITS ---
STUDY: MR CHOLANGIOPANCREATOGRAPHY (MRCP); MRI ABDOMEN WITHOUT CONTRAST REASON FOR EXAM: Female, 73 years old. Pancreatic lesion, unspecified liver disease TECHNIQUE: Standard MRCP technique was utilized. Three-dimensional reconstruction images performed of the biliary system at an independent workstation and reviewed at time of dictation. . Multisequence MRI performed without IV contrast COMPARISON: 08/16/2019, 03/16/2021 FINDINGS: MRCP: Gall Bladder: Gall bladder is surgically absent. Cystic duct: Cystic duct was not well visualized. Intrahepatic ducts: Normal visualized intrahepatic ducts with no demonstrated fixed filling defect, dilation or stricture. Common hepatic duct: Normal with no demonstrated fixed filling defect, dilation or stricture. Common bile duct: Normal with no demonstrated fixed filling defect, dilation or stricture. Pancreatic duct: Normal with no demonstrated fixed filling defect, dilation or stricture. MRI abdomen without IV contrast: Base of the chest is unremarkable. Normal liver. Normal spleen. 1.3 x 1.3 cm T2 bright well-defined cyst of the pancreatic body/proximal tail on image 14 of series 2 is stable. Limited evaluation given lack of IV contrast. No obvious ductal communication. Unchanged when directly compared to prior MRI 03/16/2021 and 08/16/2019 Normal bilateral adrenal glands. Normal right kidney. Normal left kidney. Visualized hollow viscus structures are grossly unremarkable. The appendix is not visualized. No retroperitoneal adenopathy. No bone marrow edema. MRI/MRCP Abdomen without Contrast IMPRESSION: 1. 1.3 cm pancreatic cystic lesion is stable since 2019. ACR White Paper guidelines (Binh, et al. JACR 2017; 14(7):911-923) suggest a contrast-enhanced, pancreas-protocol abdominal CT or MR in 2 years. Electronically Signed: Rubens Rain (Brooks), at 12:14 EDT ,
== END | disposition home or self-care (01) ==
LOC: MRI 15:23
PROVIDERS: PCP Internal Medicine; Referring Provider Internal Medicine Gastroenterology; Visit Provider Internal Medicine Gastroenterology
DX: K86.9 Disease of pancreas, unspecified (principal); K76.9 Liver disease, unspecified
CPT/HCPCS: 74181

== ENCOUNTER → 2023-07-21 | Outpatient (CLI) | payer MEDICARE, OTHER, SELFPAY ==
[2023-07-21] MEDS: Methacholine Chloride 18 ml neb kit INHALATION (07:02)
--- NOTE | 2023-07-21 07:33 | CPS ---
5 out of 6 vials given for testing. Last dose not given per protocol, disposed of in the purple pharmaceutical waste bin.
--- NOTE | 2023-07-25 07:48 | BRONCHALL ---
Bronchoprovocation Challenge Bronchoprovocation Challenge Bronchoprovocation Challenge: INTRODUCTION: The patient is a 73-year-old female who presents for a bronchoprovocation inhalation challenge secondary to a diagnosis of cough. Respiratory therapy reported good patient effort and reproducible results. INTERPRETATION: Initial spirometry did not show any large airways obstructive ventilatory defect with preserved airflows throughout. The patient was then given progressively increasing doses of methacholine in a standardized fashion. The patient did ultimately experience a 24% decline in FEV1 with testing. The PD 20 FEV1 was noted to be 71.7. IMPRESSION: Positive methacholine inhalation challenge in a pattern consistent with mild airway hyperresponsiveness.
== END | disposition home or self-care (01) ==
PROVIDERS: PCP Internal Medicine; Referring Provider Internal Medicine; Visit Provider Internal Medicine
DX: R05.3 Chronic cough (principal)
CPT/HCPCS: 94070; 95070

== ENCOUNTER → 2023-09-21 | Outpatient (CLI) | payer MEDICARE, OTHER, SELFPAY ==
--- NOTE | 2023-09-21 12:03 | BI_ITS ---
MAMMOGRAPHY - BILATERAL SCREENING REASON FOR EXAM: Female, 73 years old. Routine annual screening examination. PERTINENT HISTORY: Sister with breast cancer. Grandmother with breast cancer. TECHNIQUE: Digital bilateral breast kenn (3D mammographic acquisition) in the CC and MLO projections. 2-D mediolateral oblique (MLO) and craniocaudad (CC) views of both breasts were obtained. CAD: Full Field Digital Mammography with Computer Added Detection was performed. COMPARISON: Comparison is made with prior study September 08, 2022 and September 23, 2021. FINDINGS: Breast Composition: The breasts are heterogeneously dense, which may obscure small masses. There are no dominant masses or suspicious calcifications. No other significant abnormalities are identified. There has been no significant change since the prior study. BI/SCRN MAMM (CAD)W/KENN BILAT IMPRESSION: Stable bilateral screening mammogram. Yearly follow-up mammogram recommended. (A) ASSESSMENT CATEGORY: BIRADS Category 1: Negative. A letter regarding these results will be sent to the patient by the facility within 30 days. Approximately 10% of breast cancers are not detected by mammography. A normal mammogram should not delay biopsy of a clinically suspicious abnormality. [id number] Electronically Signed: Valentin Lowe MD at 13:00 EDT ,
== END | disposition home or self-care (01) ==
LOC: OPBI 12:02
PROVIDERS: PCP Internal Medicine; Referring Provider Internal Medicine; Visit Provider Internal Medicine
DX: Z12.31 Encounter for screening mammogram for malignant neoplasm of breast (principal)
CPT/HCPCS: 77063; 77067

== ENCOUNTER → 2024-01-27 | Outpatient (CLI) | payer MEDICARE, OTHER, SELFPAY ==
--- NOTE | 2024-01-27 11:16 | BD_ITS ---
STUDY: DUAL ENERGY X-RAY ABSORPTIOMETRY / DXA REASON FOR EXAM: Female, 73 years old. 627.8Menopausal postmenopausal BONE DENSITY REASON FOR EXAM TECHNIQUE: Bone Mineral Density (BMD) measurements of lumbar spine and bilateral hips were obtained. COMPARISON: Comparison is made with prior study dated February 03, 2021. FINDINGS: Lumbar Spine (L1-L4): g/cm2 (1.082) / T-score (0.4) / Z-score (2.6) Findings are suggestive of normal bone density with a low fracture risk. Left Femur Total: g/cm2 (1.130) / T-score (1.5) / Z-score (3.2) Left Femoral Neck: g/cm2 (0.829) / T-score (-0.2) / Z-score (1.7) Right Femur Total: g/cm2 (1.099) / T-score (1.3) / Z-score (2.9) Right Femoral Neck: g/cm2 (0.823) / T-score (-0.2) / Z-score (1.7) BD/Dexa Bone Density Study IMPRESSION: The patient is considered normal as outlined below according to World [employer] Organization (WHO) criteria with a low fracture risk. Reference Information: The T-score is the number of standard deviations above or below the standard which is normal for young adults at their peak bone mineral density. The World Health Organization (WHO) interprets the T-scores as follows: Above -1 Normal bone density Between -1 and -2.5 Osteopenia Equal to / or below -2.5 Osteoporosis As a practical clinical guideline, osteopenia may be graded as follows: Mild -1 through -1.5 Moderate -1.6 through -2.0 Severe -2.1 through -2.4 The Z-score is the number of standard deviations above or below age-matched controls. A Z-score of less than -1.5 would be considered abnormal. References: 1. NIH Osteoporosis and Related Bone Diseases www osteo.org 2. International Society for Clinical Densitometry www iscd.org 3. National Osteoporosis Foundation www nof.org Electronically Signed: Valentin Lowe MD at 14:49 EST ,
== END | disposition home or self-care (01) ==
LOC: OPBD 11:14
PROVIDERS: PCP Internal Medicine; Referring Provider Internal Medicine; Visit Provider Internal Medicine
DX: Z78.0 Asymptomatic menopausal state (principal)
CPT/HCPCS: 77080

== ENCOUNTER → 2024-02-10 | Outpatient (CLI) | payer MEDICARE, OTHER, SELFPAY ==
--- NOTE | 2024-02-10 07:16 | US_ITS ---
STUDY: ABDOMINAL ULTRASOUND - RIGHT UPPER QUADRANT; ELASTOGRAPHY REASON FOR VISIT: Female, 73 years old. Fatty infiltration of the liver. TECHNIQUE: Ultrasound evaluation of the right upper quadrant was performed with real-time and static pearce-scale imaging. Point quantification shear wave elastography was performed (Ylopo). TECHNICAL QUALITY: Adequate. COMPARISON: Comparison is made with prior study dated February 04, 2023. FINDINGS: Liver: The liver is enlarged and measures 18 cm. There is increased echogenicity consistent with fatty infiltration. The bile ducts are within normal limits. There is hepatic color flow. The direction of portal flow is hepatopetal. There is no demonstrated mass lesion. Median liver stiffness measured 9.4 kPa. Gallbladder: The patient is status post cholecystectomy. Common Bile Duct (C.B.D.): The common bile duct is dilated and measures 12.2 mm. Pancreas: There is normal echogenicity of the visualized pancreas. There is a 1.6 cm x 1.6 cm x 1.6 cm cyst in the tail of the pancreas. Right Kidney: Normal size of the right kidney. The right kidney measures 10.6 cm x 4.8 cm x 3.7 cm. Normal renal cortex. The right cortex measures 1.2 cm. There is no demonstrated renal mass or cyst. There is no right hydronephrosis. US/ABD Limited w/ Elastography IMPRESSION: 1. Liver stiffness measures 9.4 kPa compatible with F2-F3 (Mild to moderate liver fibrosis) Metavir score. 2. 1.6 cm x 1.6 cm x 1.6 cm cyst in the tail of the pancreas. Electronically Signed: Valentin Lowe MD at 10:38 EDT ,
== END | disposition home or self-care (01) ==
LOC: US 07:16
PROVIDERS: PCP Internal Medicine; Referring Provider Internal Medicine Gastroenterology; Visit Provider Internal Medicine Gastroenterology
DX: K76.9 Liver disease, unspecified (principal)
CPT/HCPCS: 76705; 76981

== ENCOUNTER → 2024-08-24 | Outpatient (CLI) | payer MEDICARE, OTHER, SELFPAY ==
--- NOTE | 2024-08-24 12:50 | RAD_ITS ---
EXAM: XR LEFT KNEE, 3 VIEWS CLINICAL INDICATION: left knee pain TECHNIQUE: Three views of the left knee. COMPARISON: No relevant prior studies available. FINDINGS: BONES/JOINTS: There is narrowing of the medial knee joint space. No acute fracture. No subluxation. Normal alignment. No sclerotic or destructive changes observed. SOFT TISSUES: Unremarkable. No soft tissue swelling or gas. No radiopaque foreign body. RAD/Knee 3 Views IMPRESSION: Mild degenerative changes with narrowing of the medial knee joint. There is no acute osseous abnormality. Electronically Signed: Marvin García MD at 0:07 EDT ,
== END | disposition home or self-care (01) ==
LOC: MTRAD 12:45
PROVIDERS: PCP Internal Medicine; Referring Provider Internal Medicine; Visit Provider Internal Medicine
DX: M25.562 Pain in left knee (principal)
CPT/HCPCS: 73562

== ENCOUNTER → 2024-09-27 | Outpatient (CLI) | payer MEDICARE, OTHER, SELFPAY ==
--- NOTE | 2024-09-27 10:56 | BI_ITS ---
MAMMOGRAPHY - BILATERAL SCREENING REASON FOR EXAM: Female, 74 years old. Routine annual screening examination. PERTINENT HISTORY: Sister with breast cancer. Grandmother with breast cancer. TECHNIQUE: Digital bilateral breast kenn (3D mammographic acquisition) in the CC and MLO projections. 2-D mediolateral oblique (MLO) and craniocaudad (CC) views of both breasts were obtained. CAD: Full Field Digital Mammography with Computer Added Detection was performed. COMPARISON: Comparison is made with prior study September 21, 2023 and September 08, 2022. FINDINGS: Breast Composition: The breasts are heterogeneously dense, which may obscure small masses. There are no dominant masses or suspicious calcifications. No other significant abnormalities are identified. There has been no significant change since the prior study. BI/SCRN MAMM (CAD)W/KENN BILAT IMPRESSION: Stable bilateral screening mammogram. Yearly follow-up mammogram recommended. (A) ASSESSMENT CATEGORY: BIRADS Category 1: Negative. A letter regarding these results will be sent to the patient by the facility within 30 days. Approximately 10% of breast cancers are not detected by mammography. A normal mammogram should not delay biopsy of a clinically suspicious abnormality. [id number] Electronically Signed: Valentin Lowe MD at 12:37 EDT ,
== END | disposition home or self-care (01) ==
LOC: OPBI 10:56
PROVIDERS: PCP Internal Medicine; Referring Provider Internal Medicine; Visit Provider Internal Medicine
DX: Z12.31 Encounter for screening mammogram for malignant neoplasm of breast (principal)
CPT/HCPCS: 77063; 77067

== ENCOUNTER → 2025-09-30 | Outpatient (CLI) | payer MEDICARE, OTHER, SELFPAY ==
--- NOTE | 2025-09-30 08:34 | BI_ITS ---
EXAM: BI/SCRN MAMM (CAD)W/KENN BILAT
== END | disposition home or self-care (01) ==
PROVIDERS: PCP Internal Medicine; Referring Provider Internal Medicine; Visit Provider Internal Medicine
DX: Z12.31 Encounter for screening mammogram for malignant neoplasm of breast (principal)
CPT/HCPCS: 77063; 77067

== ENCOUNTER → 2025-11-09 | Outpatient (CLI) | payer MEDICARE, OTHER, SELFPAY ==
[2025-11-09 10:16] LABS: AST(SGOT) 24 U/L (<=31); Alanine Aminotransfer ALT/SGPT 18 U/L (<=34); Albumin, Serum 4.2 g/dL (3.4-4.8); Alkaline Phosphatase 77 U/L (35-104); Bilirubin, Direct 0.30 mg/dL (0.00-0.30); Cholesterol 118 mg/dL (<=200); Globulin 2.7 g/dL (2.2-4.2); Low Density Lipoprotein Calc. 58 mg/dL; Triglycerides 112 mg/dL; Very Low Density Lipoprotein 22 mg/dL (5-40); cholesterol:hdl ratio screen 2.96
== END | disposition home or self-care (01) ==
LOC: LAB 08:47
PROVIDERS: PCP Internal Medicine; Referring Provider Internal Medicine; Visit Provider Internal Medicine
DX: E78.5 Hyperlipidemia, unspecified (principal)
CPT/HCPCS: 36415; 80061; 80076

== ENCOUNTER → 2025-11-11 | Outpatient (CLI) | payer MEDICARE, OTHER, SELFPAY ==
--- NOTE | 2025-11-11 07:23 | US_ITS ---
PROCEDURE: ABD LIMITED W/ ELASTOGRAPHY, 11/11/2025 REASON FOR EXAM: NAFLD COMPARISON: 06/13/2023 TECHNIQUE: Grayscale and color Doppler imaging of the right upper quadrant was performed. Elastography was performed for non-invasive assessment of liver tissue stiffness utilizing a [employer] S-shear wave imaging unit. FINDINGS: Liver: Borderline slightly echogenic appearance. No overt serosal nodularity. 17.5 cm in length. Gallbladder: Cholecystectomy. Biliary tree: Unremarkable. CBD measures 5 mm. Pancreas: Partially obscured by shadowing bowel gas. Cyst in the tail measures 16 x 15 x 15 mm much better evaluated on comparison MRI/MRCP. Right kidney: Unremarkable. 11.4 cm in length. Other: No visualized free fluid. Hepatic elastography: Number of measurements: 6. US probe: CA1-7A. EQI median: 7.0 kPa EQI median velocity: 1.52 m/s IQR/Med: 29.6% (kPa) and 14.1% (m/s). If the IQR/Med is IQR/median >30% (for kPa) or >15% in m/s, the variance in the measurements is a large and the accuracy of the measurement may be in question. US/ABD Limited w/ Elastography IMPRESSION: 1. Appearance of the hepatic parenchyma which is borderline but may suggest hep atocellular disease such as steatosis. Repeat MRI could including in/out of phase sequences could be considered, as indicated. 2. Liver stiffness is 7.0 kPa. Per the below 2020 SRU criteria, this rules out compensated advanced chronic liver disease in the absence of other known clinical signs. If there are known clinical signs, furth er testing may be needed for confirmation. 3. Pancreatic cystic lesion better evaluated on previous MRI/MRCP. Follow-up a gain recommended as previously suggested. 4. Additional description as above. Assessment is per the Update to the SRU Liver Elastography Consensus Statement (2020) Note that the above assessment of liver fibrosis is vendor-neutral and intended for use in fibrosis related to viral etiologies and non-alcoholic fatty-liver disease (NAFLD); in causes other than viral hepat itis and NAFLD, the cutoff values are currently not well established. In some patients with NAFLD, the cutoff values for cACLD may be lower (7-9 kPa). Note also that in the setting of elevated LFTs, nonfasting or vascular congestion, the stage of lifer fibrosis may be overestimated. Previous SRU reference values: <1.37 m/s (5.7kPa): No to mild fibrosis 1.37 m/s - 2.2 m/s: Moderate to severe fibrosis >2.2 m/s (15kPa): Significant fibrosis / cirrhosis Reading Location: [id number]
== END | disposition home or self-care (01) ==
LOC: US 07:21
PROVIDERS: PCP Internal Medicine; Referring Provider Internal Medicine Gastroenterology; Visit Provider Internal Medicine Gastroenterology
DX: K76.0 Fatty (change of) liver, not elsewhere classified (principal)
CPT/HCPCS: 76705; 76981

== ENCOUNTER → 2025-11-19 | Outpatient (CLI) | payer MEDICARE, OTHER, SELFPAY ==
[2025-11-19 13:18] LABS: Anion Gap 9 (7-18); BUN 27 mg/dL (4-19); BUN/Creat Ratio 34.3 RATIO (10-20); Calcium,Total 9.5 mg/dL (7.6-11.0); Carbon Dioxide 27.6 mmol/L (20.0-29.0); Chloride 104 mmol/L (96-106); Glucose 83 mg/dL (70-99); Potassium 4.5 mmol/L (3.5-5.1); Vitamin D,25 Hydroxy 49.9 ng/mL (30-100)
== END | disposition home or self-care (01) ==
LOC: CIMLAB 10:52
PROVIDERS: PCP Internal Medicine; Referring Provider Internal Medicine; Visit Provider Internal Medicine
DX: R73.09 Other abnormal glucose (principal); E55.9 Vitamin D deficiency, unspecified
CPT/HCPCS: 36415; 80048; 82306; 83036

== ENCOUNTER → 2025-11-20 | Outpatient (CLI) | payer MEDICARE, OTHER, SELFPAY ==
--- NOTE | 2025-11-20 12:24 | MRI_ITS ---
PROCEDURE: MRI ABD WITH AND W/O CONTRAST 11/20/2025 REASON FOR EXAM: PANCREATIC LESION TECHNIQUE: Procedure Code: [id number] Modality: MR Procedure: MRI ABD WITH AND W/O CONTRAST Multiplanar and multisequence images were obtained. CONTRAST: Clariscan VOLUME: 19 mL COMPARISON: November 11, 2025, June 13, 2023 FINDINGS: Liver: The liver is non cirrhotic. Geographic fatty infiltration is present primarily affecting the left lobe and anterior segment right hepatic lobe. Relative sparing of the posterior segment and portions of the caudate. No evidence of iron deposition. No enhancing mass shown within the liver. Biliary: Cholecystectomy. No biliary ductal dilation or choledocholithiasis. Pancreas: No glandular atrophy is seen. No evidence of pancreas divisum. There are several 5 mm and smaller foci of T2 prolongation oriented perpendicular to the long axis of the main duct with continuity to the main duct consistent with side branch ectasia and/or side-branch IPMN. These include foci at the level of the neck, mid tail and distal tail. At least 7 foci are seen. A dominant, simple appearing index cyst at the junction of the body and tail measures 13.9 x 17.7 mm. Prior exam was partially degraded by motion artifact but this is unchanged when measured similarly. Spleen: Normal Adrenals: Normal Kidneys: Sub 5 mm cortical cysts at the upper poles bilaterally in the posterior left lower pole. Peritoneum / Retroperitoneum: No mass or free fluid. Lymph Nodes: None appear enlarged Major Vessels: Normal caliber Bones: Unremarkable MRI/MRI Abd WITH and W/O Contrast IMPRESSION: 1. Cholecystectomy 2. Non cirrhotic liver. No mass seen. 3. 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 Index cyst inv olving the pancreatic body/proximal tail unchanged measuring up to 17.7 mm. Differential includes a pancreatic pseudocysts versus side branch IPMN. ACR White Paper recommendations (Binh, et al. J AM [place] Radiol 2017; 14: 911-923) suggest th e following: Follow-up pancreas-protocol CT or MRI with contrast every 6 months for two years, then every year for 2 years, then e very 2 years for a minimum of 10 years in total. Alternatively, endoscopic ultrasound/FNA may be performed. Reading Location: [facility]
== END | disposition home or self-care (01) ==
LOC: OPMRI 12:23
PROVIDERS: PCP Internal Medicine; Referring Provider Internal Medicine Gastroenterology; Visit Provider Internal Medicine Gastroenterology
DX: K86.9 Disease of pancreas, unspecified (principal); K76.0 Fatty (change of) liver, not elsewhere classified
CPT/HCPCS: 74183; A9575; A4216

== ENCOUNTER → 2025-11-22 | Outpatient (CLI) | payer MEDICARE, OTHER, SELFPAY ==
--- NOTE | 2025-11-22 07:06 | EKG12_ITS ---
Test Reason : CAD Blood Pressure : */* mmHG Vent. Rate : 60 BPM Atrial Rate : 60 BPM P-R Int : 176 ms QRS Dur : 86 ms QT Int : 404 ms P-R-T Axes : 40 -7 14 degrees QTcB Int : 404 ms Normal sinus rhythm Normal ECG Confirmed by Rj English ([id number]), photography editor ADAM STEVENSON ([id number]) on 11/22/2025 12:58:19 PM Referred By: Roopa Gaona Confirmed By: Rj English
== END | disposition home or self-care (01) ==
LOC: PSN 07:02
PROVIDERS: PCP Internal Medicine; Referring Provider Internal Medicine; Visit Provider Internal Medicine
DX: I25.10 Atherosclerotic heart disease of native coronary artery without angina pectoris (principal)
CPT/HCPCS: 93005